=== PATIENT | female | born 1945 | race Caucasian/White ===

== ENCOUNTER → 2022-12-18 | Day surgery (SDC) | payer MEDICARE, BC ==
[2022-12-14 10:15] VITALS: BMI 28.3
[~2022-12-18] MED LIST: Glycopyrrolate 0.2 MG/ML 5 ML SYRINGE ONE; Heparin 10,000 UNITS/ 10 ML VIAL ONE; Heparin 25,000 units/D5W 500 ML ONE; Midazolam HCl 2 mg/2 ml Vial ONE; NEOSTIGMINE 3 MG/3 ML SYR 3 MG/3 ML SYRINGE ONE; Ondansetron PF 4 MG/2 ML Vial ONE; PHENYLEPHRINE-NS 100 MCG/ML 10 ML SYRINGE ONE; PROPOFOL 200 MG/20 ML VIAL ONE; Protamine Sulfate 50 MG/5 ML VIAL ONE; Rocuronium Bromide 10 MG/ML (10ML VIAL) ONE; fentaNYL 50 mcg/mL 1 mL Vial ONE
== END ==
LOC: SDC 05:34
PROVIDERS: ATTEND Internal Medicine Cardiovascular Disease
PROC: B245ZZ4 Ultrasonography of Left Heart, Transesophageal (ICD-10-PCS; principal; 2022-12-18)
PROC: 02573ZK Destruction of Left Atrial Appendage, Percutaneous Approach (ICD-10-PCS; 2022-12-18)
DX: I48.19 Other persistent atrial fibrillation (principal); I10 Essential (primary) hypertension; I34.0 Nonrheumatic mitral (valve) insufficiency; Z79.01 Long term (current) use of anticoagulants; Z79.899 Other long term (current) drug therapy; Z90.49 Acquired absence of other specified parts of digestive tract; Z92.89 Personal history of other medical treatment
CPT/HCPCS: 85347 ×2; 93005; 93312; 93656; 93657; C1732; C1759; C1760; C1894 ×5; C2630; J3010; J1644; J2250; J2405; J2704; J2720

== ENCOUNTER 2022-12-20 23:08 | Inpatient (IN) | payer MEDICARE, BC ==
[2022-12-21 00:30] LABS: #Basophils 0.1 thou/uL (0.0-0.2); #Eosinphils 0.3 thou/uL (0.0-0.7); #Monocytes 1.2 thou/uL (0.11-0.59); #Neutrophils 7.3 thou/uL (1.40-6.50); %Basophils 0.5 % (0.0-1.0); %Eosinophils 2.7 % (0.0-10.0); %Lymphocytes 18.4 % (21.0-51.0); %Monocytes 11.4 % (0.0-10.0); %Neutrophils 66.7 % (42.0-75.0); Hematocrit 41.2 % (36.0-47.0); Hemoglobin 13.4 g/dL (12.0-16.0); Mean Corpuscular HGB CONC 32.5 g/dL (32.0-36.0); Mean Corpuscular Hemoglobin 28.2 pg (27.0-31.0); Mean Corpuscular Volume 86.6 fl (78.0-98.0); Mean Platelet Volume 10.9 fL (7.4-10.4); Platelet Count 173 10x3/uL (130-400); RBC Distribution Width 14.8 % (11.5-14.5); Red Blood Cell (RBC) Count 4.76 mill/uL (4.20-5.40); White Blood Cell (WBC) Count 10.9 10x3/uL (4.8-10.8)
[2022-12-21] MEDS ORDERED: Azithromycin 500 MG VIAL ONE (00:53)
[2022-12-21 00:57] LABS: ALT (SGPT) 94 U/L (8-55); AST (SGOT) 47 U/L (5-34); Albumin 3.9 g/dL (3.4-4.8); Alkaline Phosphatase 94 U/L (40-110); Anion Gap 15 mmol/L (10-20); BUN (Urea Nitrogen) 13 mg/dL (9.8-20.1); Bilirubin, Total 0.8 mg/dL (0.2-1.2); Calc. Creatinine Clearance 0 mL/min (70-130); Calcium 9.5 mg/dL (7.8-10.44); Carbon Dioxide 28 mmol/L (23-31); Chloride 101 mmol/L (98-107); Estimated GFR 72; Glucose 118 mg/dL (83-110); Magnesium 1.9 mg/dL (1.6-2.6); Potassium 3.7 mmol/L (3.5-5.1); Protein, Total 6.9 g/dL (5.8-8.1); Sodium 140 mmol/L (136-145)
[2022-12-21 01:06] LABS: Troponin I 0.393 ng/mL (< 0.028)
[2022-12-21] MEDS ORDERED: Ondansetron ODT 4 MG TAB PO PRN (01:31)
[2022-12-21] MEDS ORDERED: Acetaminophen 325 MG TAB PO PRN (01:31)
[2022-12-21] MEDS ORDERED: Ondansetron PF 4 MG/2 ML Vial IVP PRN (01:31)
[2022-12-21] MEDS ORDERED: VITAMIN A 2400 MCG PO SCH ×2 (01:45→09:00)
[2022-12-21] MEDS ORDERED: Metoprolol Tartrate 50 MG TAB PO SCH ×3 (02:00→09:00)
[2022-12-21 06:30] VITALS: BMI 28.8
[2022-12-21] MEDS ORDERED: Calcium Carbonate 600 MG + Vit D TAB PO SCH (08:00)
[2022-12-21] MEDS ORDERED: Furosemide 20 MG/2 ML VIAL SLOW IVP SCH (08:15)
[2022-12-21] MEDS ORDERED: Flecainide 50 MG TAB PO SCH (09:00)
[2022-12-21] MEDS ORDERED: Apixaban 5 MG TAB PO SCH ×3 (09:00)
[2022-12-21] MEDS ORDERED: Losartan 25 MG TAB PO SCH ×4 (09:00→21:00)
[2022-12-21] MEDS ORDERED: Non-Formulary Item 1 EACH (Losartan Potassium [Losartan Potassium] 50 MG Tablet) PO SCH (09:00)
[2022-12-21] MEDS ORDERED: Non-Formulary Item 1 EACH (Omega-3/Dha/Epa/Fish Oil [Fish Oil 1,000 Mg Softgel] 1 CAP Cap PO SCH (09:00)
[2022-12-21] MEDS ORDERED: Fish Oil 1,000 MG CAP PO SCH (09:00)
[2022-12-21] MEDS ORDERED: Multivitamin W/ Minerals 1 TAB PO SCH (09:00)
[2022-12-21] MEDS ORDERED: Citalopram 10 MG TAB PO SCH ×2 (09:00)
[2022-12-21] MEDS ORDERED: PROPOFOL 200 MG/20 ML VIAL ONE (13:58)
[2022-12-21 15:19] VITALS: BP 149/82
[2022-12-21 16:10] VITALS: TEMP 98.8
[2022-12-21] MEDS ORDERED: FLU VACC QS2023(65UP)/MF59C/PF 60 MCG/0.5 ML SYRINGE IM ONE (18:00)
[2022-12-21] MEDS ORDERED: Metoprolol Tartrate 100 MG TAB PO SCH (21:00)
== END 2022-12-21 18:37 | disposition home or self-care (01) | DRG 280 ==
LOC: ERS 23:08 → 2SE 12-21 00:30
PROVIDERS: ADMIT Family Medicine; ATTEND Family Medicine
PROC: 5A2204Z Restoration of Cardiac Rhythm, Single (ICD-10-PCS; principal; 2022-12-21)
DX: I11.0 Hypertensive heart disease with heart failure (principal); I21.A1 Myocardial infarction type 2; I50.31 Acute diastolic (congestive) heart failure; I48.19 Other persistent atrial fibrillation; E78.5 Hyperlipidemia, unspecified; F10.90 Alcohol use, unspecified, uncomplicated; R74.01 Elevation of levels of liver transaminase levels; R82.71 Bacteriuria; F32.A Depression, unspecified; F41.9 Anxiety disorder, unspecified; Z79.899 Other long term (current) drug therapy; Z90.49 Acquired absence of other specified parts of digestive tract
CPT/HCPCS: 36415; 71045; 80053; 83735; 83880; 84145; 84484; 85025; 87086; 92960; 93005; 93010; 93306; 94760; J0456; J1940; J2704